=== PATIENT | female | born 1930 | race Caucasian/White ===

== ENCOUNTER 2018-07-01 13:29 | Inpatient (IN) ==
--- NOTE | 2018-07-01 14:42 | Diag Imaging Result Doc PS360 ---
EXAM: CT HEAD W/O CONTRAST 07/01/2018 HISTORY: STROKE LIKE SYMPTOMS TECHNIQUE: This exam was performed using automated exposure control, adjustment of mA or kV according to patient size, and/or use of iterative reconstruction technique. COMMENT: There are calcifications in the vertebral arteries bilaterally. There is extensive abnormal lucency in the white matter both hemispheres. There is a fairly large lacune in the thalamus on the left measuring 9 mm in diameter. There is no evidence of mass effect, bleed, or abnormal extra-axial fluid collection. The appearance of the brain has not changed significantly since 01/27/2017. 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 No evidence of acute disease. Electronically signed by Jeffrey Wick 07/01/2018 2:39 PM
[2018-07-01] MEDS ORDERED: LR 1,000 ML IV ONE (16:48)
[2018-07-01 17:00] LABS: URINE SOURCE CLEAN CATCH
--- NOTE | 2018-07-01 17:02 | Diag Imaging Result Doc PS360 ---
EXAM: CHEST-PORTABLE 07/01/2018 HISTORY: possible cva TECHNIQUE: AP portable chest at 1656 COMMENT: Considering differences in technique there has been no significant change in the appearance the chest since 01/27/2015. There is a hiatal hernia. IMPRESSION: No acute disease. Electronically signed by Jeffrey Wick 07/01/2018 5:00 PM
[2018-07-01 17:03] LABS: BILIRUBIN URINE NEGATIVE (NEGATIVE); BLOOD URINE NEGATIVE (NEGATIVE); COLOR STRAW; GLUCOSE URINE NEGATIVE (NEGATIVE); KETONE URINE NEGATIVE (NEGATIVE); LEUKOCYTES URINE NEGATIVE (NEGATIVE); NITRITE URINE NEGATIVE (NEGATIVE); PROTEIN URINE NEGATIVE (NEGATIVE); SP GRAVITY URINE 1.002; TURBIDITY URINE CLEAR (CLEAR); UR EPITHELIAL CELLS <10 /HPF (<10); URINE BACTERIA NEGATIVE /HPF; URINE RBC <10 /HPF (<10); URINE WBC <10 /HPF (<10); UROBILINOGEN URINE NORMAL (NORMAL)
[2018-07-01 17:19] LABS: BASO# 0.02 X1000 (0.0-0.2); BASO% 0.3 % (0.0-0.8); EOS# 0.13 X1000 (0.0-0.7); EOS% 1.6 % (0.0-10.0); HEMATOCRIT 41.6 % (37.0-47.0); HEMOGLOBIN 13.4 g/dL (12.0-16.0); IMM GRAN# 0.03 X1000 (0.0-0.04); IMM GRAN% 0.4 % (0.0-0.5); LYMPH# 1.62 X1000 (1.2-3.4); LYMPH% 20.4 % (20.5-51.1); MCH 28.8 PG (27-31); MCHC 32.2 g/dL (33-37); MCV 89.5 FL (81-99); MONO# 0.67 X1000 (0.11-0.59); MONO% 8.4 % (1.7-9.3); MPV 10.6 FL (7.4-10.4); NEUT# 5.46 X1000 (1.4-6.5); NEUT% 68.9 % (42.2-75.2); PLT 207 X1000 (130-400); RBC 4.65 XMIL (4.2-5.4); RDW 13.1 % (11.5-14.5); WBC 7.93 X1000 (4.8-10.8)
[2018-07-01 17:21] LABS: INR 0.93; PROTIME 13.2 Seconds (11.0-16.0)
[2018-07-01 17:30] LABS: ALB/GLOB RATIO 1.8; ALBUMIN 4.6 g/dL (3.5-5.0); CREATININE 0.9 mg/dL (0.5-0.9); MAGNESIUM 1.8 mg/dL (1.5-2.7); POTASSIUM 4.3 mmol/L (3.5-5.1); TOTAL BILIRUBIN 0.31 mg/dL (0.20-1.00); TOTAL PROTEIN 7.1 g/dL (6.3-8.3)
--- NOTE | 2018-07-01 18:17 | PROVIDER DOCUMENTATION ---
This chart was entered by Dannielle Bolden Scribe, acting as scribe for Tate Beatty MD. HPI-Neurological Disorder - General Chief Complaint: Stroke-Like Symptoms Stated Complaint: STROKE LIKE SYMPTOMS Time Seen by Provider: 07/01/18 16:14 Source: patient, family (Brother) Allergies/Adverse Reactions: Patient Allergies Allergy/AdvReac Type Severity Reaction Status Date / Time No Known Allergies Allergy Verified 05/26/17 10:36 Home Medications: Home Medication List Medication Instructions Recorded Confirmed Last Taken Type Amlodipine Besylate 5 mg PO QAM 05/26/17 06/12/17 06/12/17 06:00 History 5 Losartan/Hydrochlorothiazide 1 each PO QAM 05/26/17 06/12/17 06/12/17 06:00 History [Losartan-Hctz 100-25 mg Tab] 1 Memantine HCl [Namenda] 10 mg PO BID 05/26/17 06/12/17 06/12/17 06:00 History 10 Metformin [Glucophage] 500 mg PO HS 05/26/17 06/12/17 06/10/17 History 500 Acetaminophen [Tylenol] 1,000 mg PO Q6H tablet 06/13/17 Unknown Rx Aspirin 325 mg PO DAILY tablet 06/13/17 Unknown Rx Celecoxib [Celebrex] 200 mg PO BID #60 cap 06/13/17 Unknown Rx Docusate Sodium [Colace] 100 mg PO BID capsule 06/13/17 Unknown Rx Famotidine [Pepcid] 20 mg PO DAILY tablet 06/13/17 Unknown Rx Magnesium Hydroxide [Milk of 30 ml PO Q6H PRN PRN udc 06/13/17 Unknown Rx Magnesia] Oxycodone I.r. [Oxy Ir] 5 - 10 mg PO Q3H PRN PRN #60 tab 06/13/17 Unknown Rx Pregabalin [Lyrica] 75 mg PO BID #60 cap 06/13/17 Unknown Rx Tramadol [Ultram] 100 mg PO Q6H #120 tab 06/13/17 Unknown Rx - History of Present Illness-Neuro Nature of Presenting Problem: 87 y/o female presents to the ED with slurred speech, right facial droop, and right arm weakness and numbness since waking and worsening since this am after patient woke up. Brother states he gave the patient a aspirin 81 mg. approximately 1100 hours. Brother gives a history of previous mini strokes and right knee replacement. Onset/Duration: reports: this morning Timing: reports: still present Context: reports: impaired speech (slurred), facial droop (right) Character of Deficits: reports: new weakness (right upper extremity), impaired speech, decreased ability to walk New weakness or altered sensation location:: reports: RUE, right facial Cognitive Baseline: alert, oriented x3 Gait Baseline: uses a cane Associated Symptoms: reports: slurred speech, weakness (RUE). denies: fever/ chills, numbness in legs/feet, ringing in ears, vomiting Similar Symptoms Previously?: No Recently seen or treated by another doctor?: No Review of Systems - Adult - REVIEW OF SYSTEMS - ADULT Constitutional: denies: chills, fever, night sweats Eyes: reports: no symptoms reported Ears, Nose, Mouth & Throat: reports: no symptoms reported Cardiovascular: reports: no symptoms reported Respiratory: reports: no symptoms reported Gastrointestinal: denies: diarrhea, nausea, vomiting Genitourinary: reports: no symptoms reported Musculoskeletal: reports: no symptoms reported Integumentary: reports: no symptoms reported Neurological: reports: numbness (RUE), slurred speech, other (right upper extremity weakness, right facial droop). denies: dizziness/vertigo, headache/ migraines, syncope Psychiatric: reports: no symptoms reported Endocrine: reports: no symptoms reported Hematologic/Lymphatic: reports: no symptoms reported Allergic/Immunologic: reports: no symptoms reported All Other Systems: Reviewed and Negative Past History - Adult - PAST MEDICAL HISTORY-ADULT Review of Records: reports: Old Records Reviewed, Nursing Assessment Review, Medications Reviewed Neurological: reports: TIA Other Conditions: reports: other (chronic severe right eye visual defect) - IMMUNIZATION STATUS Childhood Immunizations: See Nurse Assessment Flu Vaccine: See Nurse Assessment - SOCIAL HISTORY Smoking: non-smoker Substance Use: none/never Alcohol Use Frequency: never Living Situation: family Physical Exam- Neurological - Physical Exam-Neuro Initial Vital Signs Reviewed: Yes General Appearance: alert HENMT: normocephalic/atraumatic, moist mucous membranes Head Injury: no evidence of injury. negative: Tovar's Sign, lacerations, raccoon eyes Neck: full range of motion, supple Respiratory: lungs clear, normal breath sounds. 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 negative: gaze palsy Coordination/Gait: normal finger to nose, negative Romberg's sign Motor/Sensory: weak motor strength RUE. 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 II-XII nml as tested, facial droop (right) Integumentary: normal color, warm/dry Psych/Mental Status: oriented x 3 Progress - PLAN OF CARE/RESULTS Progress/Plan/Lab Results: Vital Signs - 8 hr 07/01/18 13:53 Temperature 98.2 F Pulse Rate 57 L Respiratory Rate 18 Blood Pressure 177/65 O2 Sat by Pulse Oximetry 99 Laboratory Results - last 24 hr 07/01/18 07/01/18 07/01/18 13:50 14:02 14:02 WBC 7.93 RBC 4.65 Hgb 13.4 Hct 41.6 MCV 89.5 MCH 28.8 MCHC 32.2 L RDW Std Deviation 13.1 Plt Count 207 MPV 10.6 H Immature Gran % (Auto) 0.4 Neut % (Auto) 68.9 Lymph % (Auto) 20.4 L [place] % (Auto) 8.4 Eos % (Auto) 1.6 Baso % (Auto) 0.3 Immature Gran # (Auto) 0.03 Neut # (Auto) 5.46 Lymph # (Auto) 1.62 [place] # (Auto) 0.67 H Eos # (Auto) 0.13 Baso # (Auto) 0.02 PT INR PTT (Actin FS) Sodium 137 Potassium 4.3 Chloride 99 Carbon Dioxide 25 Anion Gap 13 BUN 25 H Creatinine 0.9 Estimated GFR/1.73 m2 59 BUN/Creatinine Ratio 28 Glucose 102 POC Glucose Calculated Osmolality 278 Calcium 10.0 Magnesium 1.8 Total Bilirubin 0.31 AST 24 ALT 17 Alkaline Phosphatase 67 Total Protein 7.1 Albumin 4.6 Globulin 2.5 Albumin/Globulin Ratio 1.8 Urine Source CLEAN CATCH Urine Color STRAW Urine Turbidity CLEAR Urine pH 7.0 Ur Specific [place] 1.002 Urine Protein NEGATIVE Ur Glucose (Stick) NEGATIVE Ur Ketones (Stick) NEGATIVE Urine Blood NEGATIVE Urine Nitrite NEGATIVE Urine Bilirubin NEGATIVE Urobilinogen Dipstick NORMAL Urine Leukocytes NEGATIVE Urine WBC (Auto) <10 Urine RBC (Auto) <10 U Epithel Cells (Auto) <10 Urine Bacteria (Auto) NEGATIVE 07/01/18 07/01/18 14:02 14:32 WBC RBC Hgb Hct MCV MCH MCHC RDW Std Deviation Plt Count MPV Immature Gran % (Auto) Neut % (Auto) Lymph % (Auto) [place] % (Auto) Eos % (Auto) Baso % (Auto) Immature Gran # (Auto) Neut # (Auto) Lymph # (Auto) [place] # (Auto) Eos # (Auto) Baso # (Auto) PT 13.2 INR 0.93 PTT (Actin FS) 30.0 Sodium Potassium Chloride Carbon Dioxide Anion Gap BUN Creatinine Estimated GFR/1.73 m2 BUN/Creatinine Ratio Glucose POC Glucose 109 H Calculated Osmolality Calcium Magnesium Total Bilirubin AST ALT Alkaline Phosphatase Total Protein Albumin Globulin Albumin/Globulin Ratio Urine Source Urine Color Urine Turbidity Urine pH Ur Specific [place] Urine Protein Ur Glucose (Stick) Ur Ketones (Stick) Urine Blood Urine Nitrite Urine Bilirubin Urobilinogen Dipstick Urine Leukocytes Urine WBC (Auto) Urine RBC (Auto) U Epithel Cells (Auto) Urine Bacteria (Auto) Orders Category Date Time Status CHEST-PORTABLE [RAD] Stat Exams 07/01/18 16:[address] HEAD W/O CONTRAST [CT] Stat Exams 07/01/18 13:35 Completed CBC WITH ELECTRONIC DIFF [HEME] Stat Lab 07/01/18 14:02 Completed COMPREHENSIVE METABOLIC PANEL [CHEM] Stat Lab 07/01/18 14:02 Completed MAGNESIUM [CHEM] Stat Lab 07/01/18 14:02 Completed PT [PROTIME WITH INR] [COAG] Stat Lab 07/01/18 14:02 Completed PTT [COAG] Stat Lab 07/01/18 14:02 Completed URINALYSIS W/POSS RFLX CULT [URINALYSIS] Stat Lab 07/01/18 13:50 Completed Lactated Ringers Inj [Lr] 1,000 ml Med 07/01/18 16:48 Active IV 75 mls/hr EKG [EKG] Stat Ther 07/01/18 16:46 Ordered Result Diagrams: 07/01/18 14:02 07/01/18 14:02 - EKG 1 Time of EKG reading by physician:: 13:53 EKG Read and Signed by:: Cecilia Leon EKG Interpretation (*Must complete 3 of following elements*): Abnormal (t wave abnormality consider lateral ischemia) Rate: 60 Rhythm: NSR QRS: LVH 2 Time of EKG reading by physician:: 17:28 EKG Read and Signed by:: Tate Beatty EKG Interpretation (*Must complete 3 of following elements*): Abnormal ( moderate voltage criteria for LVH may be normal variant, T wave abnormality consider lateral ischemia) Rate: 66 Rhythm: NSR Prior EKG Comparison: unchanged from prior - XRAY 1 XRAY Study: Chest Impression: Normal (EXAM: CHEST-PORTABLE 07/01/2018 HISTORY: possible cva TECHNIQUE: AP portable chest at 1656 COMMENT: Considering differences in technique there has been no significant change in the appearance the chest since 01/27/2015. There is a hiatal hernia. IMPRESSION: No acute disease. Electronically signed by Jeffrey Wick 07/01/2018 5:00 PM 07/01/18 1700 Interpreting Physician: Jeffrey Wick MD Dictated Date/Time: 7297) - CT/MRI 1 CT Study: Head Impression: Abnormal ( EXAM: CT HEAD W/O CONTRAST 07/01/2018 HISTORY: STROKE LIKE SYMPTOMS TECHNIQUE: This exam was performed using automated exposure control, adjustment of mA or kV according to patient size, and/or use of iterative reconstruction technique. COMMENT: There are calcifications in the vertebral arteries bilaterally. There is extensive abnormal lucency in the white matter both hemispheres. There is a fairly large lacune in the thalamus on the left measuring 9 mm in diameter. There is no evidence of mass effect, bleed, or abnormal extra-axial fluid collection. The appearance of the brain has not changed significantly since 01/27/2017. 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 No evidence of acute disease. Electronically signed by Jeffrey Wick 07/01/2018 2:39 PM 1439 Interpreting Physician: Jeffrey Wick MD Dictated Date/Time: 07/01/18 7067) - CONSULTS/PCP/HOSPITALIST Notification #1 *Consult/PCP/Hospitalist*: Dr. Lewis Time Discussed: 18:00 Consult Disposition: Admit Departure - Departure Date of Disposition Decision: 07/01/18 Time of Disposition Decision: 18:00 DIAGNOSIS: CVA (cerebral vascular accident) Qualifiers: CVA mechanism: unspecified Qualified Code(s): I63.9 - Cerebral infarction, unspecified Disposition: ADMITTED INPATIENT 09 Certified Medical Emergency: Emergent Condition: Serious Referrals and Follow-Ups: Dav Haas MD [Primary Care Provider] - - Critical Care Note This patient required my direct & personal management of CC.: No Attestation - Physician/ BRIGHT Attestation The physician spent face to face time with patient:: Yes Advanced Practice Provider documentation review:: Supervising physician onsite and consulted in the evaluation and care of this patient. The physician did have a face to face encounter with the patient. - NIH Stroke Scale NIH Type: Initial Evaluation Level of Consciousness: 0-Alert LOC Questions (ask month and age): 0-Answers Both Correctly LOC Commands (ask to open & close eyes;make a fist, let go): 0-Obeys Both Correctly Best Gaze (horizontal eye movement): 0-Normal Visual (use finger movement, counting or visual threat): 0-No Visual Loss ( difficult to ascertain due to h/o right sided chronic visual defect) Facial Palsy (show teeth or raise eyebrows & close eyes tght: 1-Minor Paralysis Motor Function-left arm: 0-Normal Motor Function-right arm: 0-Normal Motor Function-left le-Normal Limb Ataxia([id number], or heel to merino): 0-No Ataxia Sensory(pin prick to face,arms,trunk,legs-compare side/side): 1-Mild to Moderate Decrease in Sensation Best Language(name item/read sentence.Ex-Down to Earth): 0-No Aphasia Dysarthria(Pt read words or say words Ex.Mama,Tip-Top,Thanks: 1-Mild-Mod Slurring Words Extinction and Inattention: 0-Normal NIH Total Score: 3 This chart was documented by the indicated scribe, (Dannielle Bolden, Levi) and accurately reflects the services I performed and decisions made by , Tate Beatty MD, as attested by the provider's signature.
--- NOTE | 2018-07-01 19:04 | HISTORY AND PHYSICAL ---
HISTORY OF PRESENT ILLNESS: This is an 87-year-old patient of Dr. Dav Haas. She presented today. Sometime this morning she noticed weakness and dysarthria in her right hand. Particularly, they noticed her right face was drooping. Her right leg is weak. Apparently, she did stumble and fall a couple of times today. This happened sometime this morning. Denied any chest pain or palpitations or any trauma to the head that she knows of. No fever or chills. No cough or sputum production. PAST MEDICAL HISTORY: 1. Blood clot, DVT in the leg in the past. 2. Dementia. 3. Hypertension. 4. Hypercholesterolemia. 5. Osteoarthritis. ALLERGIES: Denies any known drug allergies. MEDICATIONS: She is on, I think, amlodipine, donepezil, losartan, memantine, metformin, simvastatin, and tramadol. Her son who lives with her is bringing in the list. REVIEW OF SYSTEMS: General: She denies any weight gain or loss. No fever or chills. HEENT: No change in her vision or hearing acuity. She noticed her right face drooping. Neurologic: She noticed her right arm is weak starting this morning and her right leg. She really can't tell me about any progression, but family noted she is having trouble formulating words. A little more difficulty with expressive aphasia. Gastrointestinal and Genitourinary: No gross hematuria or dysuria. Musculoskeletal/Neurologic: As above. Cardiovascular: No chest pain or tachy palpitation. Respiratory: No increased work of breathing or dyspnea. PHYSICAL EXAMINATION: GENERAL: In the emergency room, she is awake, alert, and very pleasant. VITAL SIGNS: Temperature 98.2 degrees, pulse 57, respirations 18, blood pressure 177/65. HEENT: Pupils are equal. Conjunctivae pink. Sclerae clear. NECK: No distended neck veins. CVP less than 6 cm in the right atrium. No cervical or supraclavicular adenopathy. No thyromegaly. Neck is supple. LUNGS: Clear in all lung gutierrez. CARDIOVASCULAR: Regular rhythm and rate without murmur or S3. ABDOMEN: Soft. SKIN: Warm and dry. No pedal edema. NEUROLOGIC: Her right arm is weak at 3/5 where the left arm is a 5/5. Left leg is a 5/5. The right leg is a 4/5 just a little bit weak in dorsiflexion and plantarflexion, but she can lift her leg off but is not as forceful as on the left side. LABORATORY DATA: White count 7930. Hematocrit is 41. Platelet count 207,000. Sodium 137, potassium 4.3, chloride 99, BUN 25, creatinine 0.9, blood sugar 102. Magnesium 1.8. Albumin 4.6, PT 13.2, PTT 30. Urinalysis unremarkable. Chest x-ray, no acute disease. No infiltrate. CT of the head with extensive chronic ischemic white matter disease and old lacunar infarction. No evidence of acute disease. ASSESSMENT AND PLAN: 1. Suspect left hemisphere CVA with right-sided paresis, particularly right arm, right facial drooping. Some mild expressive aphasia. Blood pressure right now 160 to 170. We will tolerate a little high bread pressure right now. Give her some fluids. She was taking 325 aspirin, I guess, so I am going to add Plavix to her regimen 75 mg and give that to her tonight. 2. Hypertension. We will watch her blood pressure. I will put her on her blood pressure medicines, but I do not want to keep her on her same home medications. I do not want blood pressure to drop too low. 3. Pain. I think mainly in her back and her joints. She is on tramadol right now 100 mg q.6 p.r.n., and I guess we will continue that. She is also on Celebrex 200 mg b.i.d., and I think we will continue that as well. 4. Dementia. She is on Namenda, and she takes Namenda 10 mg b.i.d. We will continue that. cc: Husam Lewis MD
[2018-07-01] MEDS ORDERED: TYLENOL PO SCH (20:06)
[2018-07-01] MEDS ORDERED: MILK OF MAGNESIA PO PRN (20:06)
[2018-07-01] MEDS ORDERED: ULTRAM PO PRN (20:06)
[2018-07-01] MEDS ORDERED: CELEBREX PO SCH (21:00)
[2018-07-01] MEDS ORDERED: LYRICA PO SCH (21:00)
[2018-07-01] MEDS: COLACE PO SCH ×2 (21:22→21:25)
[2018-07-01] MEDS: NAMENDA PO SCH (21:22)
[2018-07-01] MEDS: GLUCOPHAGE PO SCH (21:23)
[2018-07-01] MEDS ORDERED: TYLENOL PO PRN (21:26)
[2018-07-01] MEDS: NS 1,000 ML IV SCH (22:23)
[2018-07-01] MEDS: PLAVIX PO SCH (22:24)
[2018-07-02 07:06] LABS: BASO# 0.01 X1000 (0.0-0.2); BASO% 0.2 % (0.0-0.8); EOS# 0.17 X1000 (0.0-0.7); EOS% 2.9 % (0.0-10.0); HEMATOCRIT 41.8 % (37.0-47.0); HEMOGLOBIN 13.6 g/dL (12.0-16.0); LYMPH# 1.41 X1000 (1.2-3.4); LYMPH% 23.7 % (20.5-51.1); MCH 29.1 PG (27-31); MCHC 32.5 g/dL (33-37); MCV 89.5 FL (81-99); MONO# 0.44 X1000 (0.11-0.59); MONO% 7.4 % (1.7-9.3); MPV 9.9 FL (7.4-10.4); NEUT# 3.91 X1000 (1.4-6.5); NEUT% 65.8 % (42.2-75.2); PLT 217 X1000 (130-400); RBC 4.67 XMIL (4.2-5.4); RDW 13.1 % (11.5-14.5); WBC 5.94 X1000 (4.8-10.8)
[2018-07-02] MEDS: NS 1,000 ML IV SCH ×2 (07:18→19:29)
[2018-07-02 07:27] LABS: AGAP 12; ALB/GLOB RATIO 1.7; ALKALINE PHOSPHATASE 67 U/L (32-104); BUN 22 mg/dL (8-22); CALCIUM 9.3 mg/dL (8.8-10.2); CHLORIDE 102 mmol/L (98-107); COSMO 283; CREATININE 0.8 mg/dL (0.5-0.9); ESTIMATED GFR > 60; GLUCOSE 102 mg/dL (70-104); GOT 20 U/L (10-30); GPT 15 U/L (10-36); POTASSIUM 4.1 mmol/L (3.5-5.1); SODIUM 140 mmol/L (136-145); TCO2 26 mmol/L (25-35); TOTAL PROTEIN 6.3 g/dL (6.3-8.3)
--- NOTE | 2018-07-02 08:58 | EKG Report ---
Test Performed on : 07/01/2018 5:27:40 PM Test Reason : chest pain Blood Pressure : / mmHG Vent. Rate : 066 BPM Atrial Rate : 066 BPM P-R Int : 194 ms QRS Dur : 080 ms QT Int : 420 ms P-R-T Axes : 028 -29 110 degrees QTc Int : 440 ms Normal sinus rhythm. Moderate voltage criteria for LVH, may be normal variant T wave abnormality, consider lateral ischemia Abnormal ECG When compared with ECG of 01-JUL-2018 13:51, (Unconfirmed) No significant change was found Unconfirmed Result
[2018-07-02] MEDS ORDERED: ARICEPT PO SCH (09:00)
[2018-07-02] MEDS ORDERED: HYZAAR 50/12.5 MG PO SCH (09:00)
[2018-07-02] MEDS: PEPCID PO SCH (09:13)
[2018-07-02] MEDS: COLACE PO SCH ×2 (09:13→22:50)
[2018-07-02] MEDS: PLAVIX PO SCH (09:13)
[2018-07-02] MEDS: NORVASC PO SCH (09:13)
[2018-07-02] MEDS: LIPITOR PO SCH (09:14)
[2018-07-02] MEDS: NAMENDA PO SCH ×2 (09:14→22:50)
[2018-07-02] MEDS: ASPIRIN PO SCH (09:14)
--- NOTE | 2018-07-02 15:14 | EKG Report ---
Test Performed on : 07/01/2018 1:51:59 PM Test Reason : ED. No order in [place] Blood Pressure : / mmHG Vent. Rate : 060 BPM Atrial Rate : 060 BPM P-R Int : 190 ms QRS Dur : 084 ms QT Int : 422 ms P-R-T Axes : 077 -22 081 degrees QTc Int : 422 ms Normal sinus rhythm. Minimal voltage criteria for LVH, may be normal variant T wave abnormality, consider lateral ischemia Abnormal ECG When compared with ECG of 31-MAY-2017 08:14, No significant change was found Unconfirmed Result
[2018-07-02] MEDS: ARICEPT PO SCH ×2 (18:04→23:04)
[2018-07-02] MEDS: GLUCOPHAGE PO SCH (22:50)
--- NOTE | 2018-07-03 08:12 | ECHO REPORT ---
ORDER DATE: 07/02/2018 INDICATIONS: Dementia, hypertension. M-MODE MEASUREMENTS: Left ventricle end diastole: 3.9 cm. Left ventricle end systole: 3.1 cm. Posterior wall: 0.9 cm. Interventricular septum: 1.0 cm. Left atrium: 4.0 cm. Aortic root: 2.9 cm. SUMMARY OF 2-DIMENSIONAL IMAGIN. The left ventricular function appears to be hyperdynamic. Ejection fraction is 75% or so. 2. Mitral annulus shows dense calcification. Color flow mapping indicates mild degree of regurgitation. 3. Pulse wave Doppler of mitral inflow shows relatively "normal" E/A ratio. 4. Tissue Doppler of septal and lateral mitral annulus averages 6 cm. 5. There is impaired left ventricular relaxation. 6. Left atrium appears to be mildly enlarged. 7. Pulmonic valve looks normal. Color flow mapping unremarkable. 8. Tricuspid valve shows mild to moderate degree of regurgitation. 9. Pulmonary pressure estimated at 35 mmHg. 10.Aortic valve is densely calcified and it showed restricted opening. Maximum gradient across this valve is 47 mmHg, mean gradient is 27 mmHg. Using the continuity equation, the aortic valve area is calculated at 0.7 cm2. The aortic valve VTI was 83 cm. The LVOT VTI was 18.5 cm. The LVOT proper measured 2.0 cm. 11.There is no pericardial effusion, mass and no thrombus. SUMMARY: In summary, this study shows: 1. Excellent/hyperdynamic left ventricular systolic function. 2. Moderate to severe degree of aortic stenosis. Mean gradient is 27 mmHg. Valve area is 0.7 cm2. This could be a case of low flow/low gradient aortic stenosis. The reason is because the cardiac index comes up to be 1.6 liters per m2 of body surface area. Clinical correlation recommended. cc: MD Husam Rice MD Russell T. Barr, MD MTDD
[2018-07-03] MEDS ORDERED: PREVNAR 13 IM ONE (09:11)
[2018-07-03] MEDS: NORVASC PO SCH (09:16)
[2018-07-03] MEDS: COLACE PO SCH ×2 (09:16→20:58)
[2018-07-03] MEDS: PLAVIX PO SCH (09:16)
[2018-07-03] MEDS: PEPCID PO SCH (09:16)
[2018-07-03] MEDS: ASPIRIN PO SCH (09:16)
[2018-07-03] MEDS: NAMENDA PO SCH ×2 (09:17→20:58)
[2018-07-03] MEDS: LIPITOR PO SCH (09:17)
[2018-07-03] MEDS: ARICEPT PO SCH ×2 (20:58→21:00)
[2018-07-03] MEDS: GLUCOPHAGE PO SCH (20:58)
[2018-07-04] MEDS ORDERED: TYLENOL PO PRN (09:05)
[2018-07-04] MEDS: CITRACAL + D PO SCH (10:15)
[2018-07-04] MEDS: ARICEPT PO SCH (10:17)
[2018-07-04] MEDS: NORVASC PO SCH (10:17)
[2018-07-04] MEDS: ASPIRIN PO SCH (10:17)
[2018-07-04] MEDS: NAMENDA PO SCH ×2 (10:17→20:40)
[2018-07-04] MEDS: PEPCID PO SCH (10:17)
[2018-07-04] MEDS: COLACE PO SCH ×2 (10:17→20:40)
[2018-07-04] MEDS: PLAVIX PO SCH (10:17)
[2018-07-04] MEDS: LIPITOR PO SCH (10:17)
[2018-07-04] MEDS ORDERED: CALMOSEPTINE OINTMENT TOP PRN (11:18)
[2018-07-04] MEDS: GLUCOPHAGE PO SCH (20:40)
[2018-07-05 06:39] VITALS: BP 172/60
[2018-07-05] MEDS: NAMENDA PO SCH (09:05)
[2018-07-05] MEDS: CITRACAL + D PO SCH (09:05)
[2018-07-05] MEDS: ASPIRIN PO SCH (09:06)
[2018-07-05] MEDS: ARICEPT PO SCH (09:06)
[2018-07-05] MEDS: COLACE PO SCH (09:06)
[2018-07-05] MEDS: PEPCID PO SCH (09:06)
[2018-07-05] MEDS: LIPITOR PO SCH (09:06)
[2018-07-05] MEDS: PLAVIX PO SCH (09:06)
--- NOTE | 2018-07-05 09:11 | DISCHARGE SUMMARY ---
ADMISSION DATE: 07/01/2018 DISCHARGE DATE: 07/05/2018 FINAL DIAGNOSES: 1. Left cerebral thrombosis with right hemiparesis. 2. History of dementia. 3. History of hypertension. 4. Osteoarthritis multiple joints. HISTORY OF PRESENT ILLNESS: Mrs. Moses is an 87-year-old, woman, who lives alone with nearly 24/7 sitters. On the morning of admission, she was noted to have weakness and dysarthria in her right hand and a mild right facial droop. She attempted to walk and apparently fell once- or-twice at home. Sitters called her son who brought her to the emergency room. PHYSICAL EXAMINATION: VITAL SIGNS: She was afebrile. Pulse of 57, respirations 18, blood pressure 177/65. HEENT: Pupils were equal. Extraocular movements were intact. NECK: Remarkable for no jugular venous distension, adenopathy or bruits. LUNGS: Clear bilaterally. CARDIAC: Regular rate and rhythm without murmurs or gallops. NEUROLOGIC: Right arm was 3/5. She was able to squeeze fingers with reduced strength. Left arm was 5/5. Left leg 5/5. The right leg was 4/5. DATABASE: CBC: Unremarkable. Electrolytes: Normal. BUN 25, creatinine 0.9. IMAGIN. Chest x-ray no acute disease. 2. CT of the head showed extensive chronic ischemic white matter disease and old lacunar infarctions. There was no evidence of an acute stroke. HOSPITAL COURSE: She was admitted with the diagnosis of an acute left hemispheric infarction with right-sided hemiparesis with mild expressive aphasia. She was already on aspirin, so Plavix was added. Her home blood pressure of amlodipine was continued and may eventually need to increase as her blood pressures ran somewhat high but while she was here we were attempting to avoid any hypotension. She was continued on Aricept and Namenda for her dementia. She remained alert and cooperative without any evidence of delirium during this admission. She was seen by Speech Therapy and felt to have save swallowing and will likely benefit from further speech therapy and cognitive rehab in the rehab facility. Physical Therapy confirmed the above findings and also felt she was appropriate for therapy requiring moderate assistance from supine to sitting, maximal assistance [id number]. And required some blocking for right lower extremity to prevent falling.Echocardiogram found only aortic stenosis, previously unsuspected, but asymptomatic, no treatment needed. Her rehab prognosis is fair to possibly good. DISPOSITION: She was discharged to [facility] in stable condition. DISCHARGE MEDICATIONS: 1. Atorvastatin 10 mg daily. 2. Citracal petite tablets one daily. 3. Clopidogrel 75 mg q a.m. 4. Losartan 50 mg b.i.d. 5. Magnesium hydroxide 30 mL daily for constipation. 6. Septin ointment 1-2 g topically as needed to the peroneal area for irritation. 7. Acetaminophen 500 mg q.6h p.r.n. pain. 8. Famotidine 20 mg daily. 9. Amlodipine 5 mg q a.m. 10.Memantine 10 mg b.i.d. 11.Metformin 500 mg p.o. at bedtime. 12.Aspirin 325 mg daily. 13.Donepezil 23 mg once a day. cc: Dav Haas MD MTDD
[2018-07-05] MEDS: NORVASC PO SCH (09:12)
== END 2018-07-05 13:01 | DRG 68 ==
LOC: ED 13:29 → 4N 18:49
PROVIDERS: ADMIT Internal Medicine; ATTEND Internal Medicine
CPT/HCPCS: 70450; 71010; 71045; 80053; 80061; 81001; 82948; 83721; 83735; 84134; 85025; 85610; 85730; 87324; 90670; 92523; 93005; 93306; 94761; 96360; 96361; 97162; 97530; 99285; A9270; J7030; J7120; XXXXX